=== PATIENT | female | born 1950 | race Caucasian/White ===

== ENCOUNTER 2018-01-25 13:58 | Outpatient (CLI) | payer MEDICARE | END 2018-01-25 13:59 | disposition home or self-care (01) | LOC: BICULT 13:58 | PROVIDERS: ATTEND Family Medicine | DX: E83.52 Hypercalcemia (principal); E04.2 Nontoxic multinodular goiter | CPT/HCPCS: 76536 ==

== ENCOUNTER 2018-08-11 13:46 | Outpatient (CLI) | payer MEDICARE ==
[~2018-08-11 13:46] MED LIST: Iopamidol 370 76% 100 ML VIAL ONE; Iopamidol 370 76% 50 ML VIAL FS ONE
[2018-08-11 14:34] LABS: Estimated GFR-MDRD - POC Greater than 90
--- NOTE | 2018-08-11 17:42 | CT ---
CT NECK WITH AND WITHOUT CONTRAST: PARATHYROID PROTOCOL 08/11/18 HISTORY: 67-year-old female with E21.3 - hyperparathyroidism. TECHNIQUE: IV contrast: 120 mL Isovue 370. Precontrast scan, 25 second delayed postcontrast scan, and 65 second delayed postcontrast scan, perfo rmed from foramen magnum to T6 level. Coronal and sagittal reconstructions. FINDINGS: There is an approximately 0.9 x 0.4 x 1.6 cm enhancing soft tissue density nodule (without intrinsic iodine on the noncontrast scan image 48 of 89, series 2) which enhances to a greater degree than lymp h nodes on the postcontrast images (axial images 48 of 89 series 5; 48 of 178 series 3; 47 of 89 seri es 6; sagittal image 88 of 180 series 602, and coronal images 72, 73, and 74 of 161, series 601), and which abuts the lateral surface of the esophagus, posterior surface of the right lobe of the thyroid gland at its upper/mid pole, posteromedial surface of the right common carotid artery, and anterior surface of the right longus colli muscle, centered at the C6-7 level. There is high grade degenerative disc disease at C3-4, C4-5, C5-6, and to a lesser degree C6-7. The left internal carotid and distal common carotid artery takes a tortuous, retropharyngeal path, an d anteriorly displaces the left posterior pharyngeal wall at the level of the larynx. IMPRESSION: 1. Good candidate for parathyroid adenoma posterior to the right lobe of the thyroid gland and a butting the right side of the esophagus, at the C6-7 level. 2. Cervical spondylosis with multilevel high grade degenerative disc disease. Code T POS: BARBARA
== END 2018-08-11 13:47 | disposition home or self-care (01) ==
LOC: CT 13:46
PROVIDERS: ATTEND Specialist
DX: E21.3 Hyperparathyroidism, unspecified (principal); M47.892 Other spondylosis, cervical region; M50.30 Other cervical disc degeneration, unspecified cervical region
CPT/HCPCS: 70492; 82565

== ENCOUNTER 2018-08-26 09:22 | Day surgery (SDC) | payer MEDICARE ==
[2018-08-25 10:50] VITALS: BMI 35.4
[2018-08-26 12:05] LABS: Hemoglobin 13.3 g/dL (12.0-16.0)
[2018-08-26 12:30] LABS: Anion Gap 11 mmol/L (10-20); BUN (Urea Nitrogen) 12 mg/dL (9.8-20.1); Calc. Creatinine Clearance 117 mL/min (70-130); Carbon Dioxide 23 mmol/L (23-31); Chloride 109 mmol/L (98-107); Estimated GFR-MDRD 83; Glucose 87 mg/dL (80-115); Potassium 4.4 mmol/L (3.5-5.1); Sodium 139 mmol/L (136-145)
[2018-08-26] MEDS ORDERED: Lidocaine 1% w/Epinephrine 1:100K 30 ML VIAL ONE (13:36)
[2018-08-26] MEDS ORDERED: Fentanyl 100 MCG/2 ML VIAL ONE ×2 (13:44→15:45)
[2018-08-26] MEDS ORDERED: Midazolam HCl 2 mg/2 ml Vial ONE (13:44)
[2018-08-26] MEDS ORDERED: HYDROcodone/Acetaminophen 5/325 mg Tablet ONE (16:50)
--- NOTE | 2018-08-26 22:07 | OP ---
DATE OF PROCEDURE: 08/26/2018 PREOPERATIVE DIAGNOSES: Primary hyperparathyroidism, right parathyroid adenoma and hypercalcemia. POSTOPERATIVE DIAGNOSES: Primary hyperparathyroidism, right parathyroid adenoma and hypercalcemia. PROCEDURES PERFORMED: Right parathyroidectomy, right neck exploration using laryngeal nerve monitori ng. PROCEDURE IN DETAIL: After consent was obtained, the patient was identified, brought to the operatin g room and placed on the table in supine position. General endotracheal anesthesia was obtained. Th e patient was positioned for surgery. Laryngeal nerve monitoring endotracheal tube was placed and do cumented to be functioning. The patient was prepped and draped in sterile fashion. The neck was ext ended. An incision made through skin and subcutaneous tissues down through the platysma and subplaty smal flaps were elevated. The retractor was placed and we turned our attention to the right thyroid lobe. It was dissected free from the strap muscle and retracted medially as the strap muscles retrac cole laterally. Parathyroid adenoma was identified and dissected from the surrounding tissues with ca re not to injure the surrounding structures histologic evaluation and documented to be in fact parathyroid tissue. We then proceeded with closure with absorbable suture. Skin was closed with a r unning subcuticular and sterile dressing was applied. The patient was awakened and taken to recovery room where she remained in stable condition prior to discharge home.
== END 2018-08-26 17:55 | disposition home or self-care (01) ==
LOC: SDC 09:22
PROVIDERS: ATTEND Specialist
PROC: 0GBR0ZZ Excision of Parathyroid Gland, Open Approach (ICD-10-PCS; principal; 2018-08-26)
DX: D35.1 Benign neoplasm of parathyroid gland (principal); E21.0 Primary hyperparathyroidism; E07.9 Disorder of thyroid, unspecified; K21.9 Gastro-esophageal reflux disease without esophagitis; J45.909 Unspecified asthma, uncomplicated; I10 Essential (primary) hypertension; E66.9 Obesity, unspecified; Z68.35 Body mass index [BMI] 35.0-35.9, adult; Z87.891 Personal history of nicotine dependence; Z79.899 Other long term (current) drug therapy
CPT/HCPCS: 36415; 80048; 85014; 85018; 88305; 88331; 88334; 93005; 93010; 96374; J2001; J2250; J3010

== ENCOUNTER 2019-07-07 12:23 | Outpatient (CLI) | payer MEDICARE ==
[2019-07-07 13:13] LABS: Bacteria/HPF 4+ HPF (None Seen); Bilirubin Negative (Negative); Blood, Urine Negative (Negative); Clarity Clear (Clear); Glucose, Urine (Dipstick) Normal (Negative); Leukocyte Negative Leu/uL (Negative); Nitrite Negative (Negative); Protein, Urine (Dipstick) Negative (Neg-Trace); RBC/HPF 0-3 HPF (0-3); Squamous Epithelial 0-3 HPF (0-3); Urobilinogen Normal mg/dL (Less than 2); WBC/HPF 0-3 HPF (0-3)
[2019-07-07 13:50] LABS: #Basophils 0.1 thou/uL (0.0-0.2); #Eosinphils 0.2 thou/uL (0.0-0.7); #Lymphocytes 2.4 thou/uL (1.20-3.40); #Monocytes 0.6 thou/uL (0.11-0.59); #Neutrophils 4.2 thou/uL (1.40-6.50); %Basophils 1.3 % (0.0-1.0); %Lymphocytes 31.8 % (21.0-51.0); %Monocytes 8.1 % (0.0-10.0); %Neutrophils 55.8 % (42.0-75.0); Hemoglobin 13.8 g/dL (12.0-16.0); Mean Corpuscular HGB CONC 33.2 g/dL (32.0-36.0); Mean Corpuscular Hemoglobin 30.2 pg (27.0-31.0); Mean Corpuscular Volume 91.1 fL (78.0-98.0); Mean Platelet Volume 7.9 fL (7.4-10.4); Platelet Count 341 thou/uL (130-400); Red Blood Cell (RBC) Count 4.55 mill/uL (4.20-5.40); White Blood Cell (WBC) Count 7.5 thou/uL (4.8-10.8)
[2019-07-07 13:56] LABS: INR-International Normal Ratio 0.9; Prothrombin Time 12.4 SEC (12.0-14.7)
[2019-07-07 14:14] LABS: Anion Gap 14 mmol/L (10-20); BUN (Urea Nitrogen) 14 mg/dL (9.8-20.1); Calc. Creatinine Clearance 0 mL/min (70-130); Calcium 9.4 mg/dL (7.8-10.44); Carbon Dioxide 24 mmol/L (23-31); Chloride 105 mmol/L (98-107); Estimated GFR-MDRD 87; Glucose 114 mg/dL (80-115); Potassium 4.9 mmol/L (3.5-5.1); Sodium 138 mmol/L (136-145)
--- NOTE | 2019-07-08 11:05 | EKG ---
Test Reason : Blood Pressure : / mmHG Vent. Rate : 060 BPM Atrial Rate : 060 BPM P-R Int : 256 ms QRS Dur : 090 ms QT Int : 464 ms P-R-T Axes : 069 069 066 degrees QTc Int : 464 ms Sinus rhythm with 1st degree A-V block Otherwise normal ECG Confirmed by RIC DURAN ([id number]) on 07/08/2019 11:04:49 AM Referred By: CHRISSY Confirmed By:RIC DURAN
== END 2019-07-07 12:24 | disposition home or self-care (01) ==
LOC: LABBT 12:23
PROVIDERS: ATTEND Orthopaedic Surgery
DX: Z01.818 Encounter for other preprocedural examination (principal); M17.0 Bilateral primary osteoarthritis of knee
CPT/HCPCS: 80048; 81001; 85025; 85610; 87081; 93005; 93010

== ENCOUNTER 2020-07-19 12:07 | Outpatient (CLI) | payer MEDICARE ==
--- NOTE | 2020-07-19 12:54 | MMO ---
Bilateral MAMMO Bilat Screen [facility]E. CLINICAL HISTORY: Patient is 69 years old and is seen for screening. The patient has no family history of breast cancer. The patient has no personal history of cancer. VIEWS: The views performed were: bilateral craniocaudal with tomosynthesis and bilateral mediolateral oblique with tomosynthesis. FILMS COMPARED: The present examination has been compared to prior imaging studies performed at [facility] on 11/19/2004, 08/07/2009 and 07/30/2017, and at [facility] on 05/29/1999. This study has been interpreted with the assistance of computer-aided detection. MAMMOGRAM FINDINGS: There are scattered fibroglandular densities. There are vascular calcifications seen in both breasts. There are no suspicious masses, suspicious calcifications, or new areas of architectural distortion. IMPRESSION: A ROUTINE FOLLOW-UP MAMMOGRAM IN 1 YEAR IS RECOMMENDED. THE RESULTS OF THIS EXAM WERE SENT TO THE PATIENT. ACR BI-RADS Category 2 - Benign finding MAMMOGRAPHY NOTE: 1. A negative mammogram report should not delay a biopsy if a dominant of clinically suspicious mass is present. 2. Approximately 10% to 15% of breast cancers are not detected by mammography. 3. Adenosis and dense breasts may obscure an underlying neoplasm. Reported by: HILARIO CRAWFORD MD Electonically Signed: [id number]
== END 2020-07-19 12:08 | disposition home or self-care (01) ==
LOC: BICMAMMO 12:07
PROVIDERS: ATTEND Family Medicine
DX: Z12.31 Encounter for screening mammogram for malignant neoplasm of breast (principal)
CPT/HCPCS: 77063; 77067

== ENCOUNTER 2020-09-03 06:52 | Outpatient (CLI) | payer MEDICARE, OTHER ==
[2020-09-04 12:09] LABS: SARS-CoV-2 MS2 Positive; SARS-CoV-2 N Gene Negative; SARS-CoV-2 S Gene Negative; SARS-CoV-2 by NAA Not Detected (NotDetected); SARS-CoV-2 orf1ab Negative
== END 2020-09-03 06:53 | disposition home or self-care (01) ==
LOC: LABBT 06:52
PROVIDERS: ATTEND Surgery
DX: Z20.828 Contact with and (suspected) exposure to other viral communicable diseases (principal)
CPT/HCPCS: 87635; U0003

== ENCOUNTER → 2020-09-06 | Day surgery (SDC) | payer MEDICARE | LOC: ENDO/OP 07:38 | PROVIDERS: ATTEND Surgery | DX: K21.9 Gastro-esophageal reflux disease without esophagitis (principal); K44.9 Diaphragmatic hernia without obstruction or gangrene; I10 Essential (primary) hypertension; E07.9 Disorder of thyroid, unspecified; J45.909 Unspecified asthma, uncomplicated; E66.9 Obesity, unspecified; Z68.35 Body mass index [BMI] 35.0-35.9, adult; Z79.899 Other long term (current) drug therapy; Z87.891 Personal history of nicotine dependence | CPT/HCPCS: 91010 ==

== ENCOUNTER 2020-09-17 06:32 | Outpatient (CLI) | payer MEDICARE ==
[2020-09-17 10:24] LABS: #Basophils 0.1 10x3/uL (0.0-0.2); #Eosinphils 0.1 10x3/uL (0.0-0.5); #Monocytes 0.5 10x3/uL (0.0-1.1); %Basophils 0.9 % (0.0-2.0); %Lymphocytes 31.3 % (18.0-47.0); %Monocytes 7.8 % (0.0-10.0); %Neutrophils 57.6 % (40.0-75.0); Hemoglobin 12.7 g/dL (12.0-16.0); Mean Corpuscular HGB CONC 31.3 G/DL (32.0-36.0); Mean Corpuscular Hemoglobin 28.1 PG (27.0-33.0); Mean Corpuscular Volume 89.8 fl (80.0-100.0); Mean Platelet Volume 10.3 fl (7.4-10.4); Platelet Count 357 10x3/uL (130-400); RBC Distribution Width 14.2 % (11.5-14.5); Red Blood Cell (RBC) Count 4.52 10x6/uL (3.90-5.20); White Blood Cell (WBC) Count 6.9 10x3/uL (4.5-11.0)
[2020-09-17 10:31] LABS: ALT (SGPT) 13 U/L (8-55); AST (SGOT) 17 U/L (5-34); Albumin 4.1 g/dL (3.4-4.8); Alkaline Phosphatase 72 U/L (40-110); Anion Gap 12 mmol/L (10-20); BUN (Urea Nitrogen) 14 mg/dL (9.8-20.1); Bilirubin, Direct 0.1 mg/dL (0.1-0.3); Bilirubin, Total 0.4 mg/dL (0.2-1.2); Calc. Creatinine Clearance 0 mL/min (70-130); Calcium 8.8 mg/dL (7.8-10.44); Carbon Dioxide 26 mmol/L (23-31); Chloride 106 mmol/L (98-107); Globulin 2.8 g/dL (2.4-3.5); Glucose 79 mg/dL (80-115); Potassium 4.6 mmol/L (3.5-5.1); Protein, Total 6.9 g/dL (6.0-8.3); Sodium 139 mmol/L (136-145)
[2020-09-17 23:14] LABS: SARS-CoV-2 MS2 Positive; SARS-CoV-2 N Gene Negative; SARS-CoV-2 S Gene Negative; SARS-CoV-2 by NAA Not Detected (NotDetected); SARS-CoV-2 orf1ab Negative
--- NOTE | 2020-09-19 07:00 | EKG ---
Test Reason : PREOP Blood Pressure : / mmHG Vent. Rate : 057 BPM Atrial Rate : 057 BPM P-R Int : 262 ms QRS Dur : 088 ms QT Int : 420 ms P-R-T Axes : 082 072 081 degrees QTc Int : 408 ms Sinus bradycardia with 1st degree A-V block Otherwise normal ECG No previous ECGs available Confirmed by NANCY PARKER, SUBHA ([id number]) on 09/19/2020 7:00:33 AM Referred By: Shilpi BLEDSOE Confirmed By:SUBHA CRUZ MD
== END 2020-09-17 06:33 | disposition home or self-care (01) ==
LOC: LABBT 06:32
PROVIDERS: ATTEND Surgery
DX: Z01.818 Encounter for other preprocedural examination (principal); Z20.828 Contact with and (suspected) exposure to other viral communicable diseases; K44.9 Diaphragmatic hernia without obstruction or gangrene; K21.9 Gastro-esophageal reflux disease without esophagitis
CPT/HCPCS: 80053; 80076; 85025; 93005; U0003; 87635; 93010

== ENCOUNTER 2020-09-20 09:57 | Inpatient (IN) | payer MEDICARE ==
[2020-09-19 11:49] VITALS: BMI 34.9
[2020-09-20] MEDS ORDERED: Ketorolac Tromethamine 30 MG/ML VIAL ONE (10:06)
[2020-09-20] MEDS ORDERED: Dexamethasone 20 MG/5 ML VIAL ONE (10:06)
[2020-09-20] MEDS ORDERED: Glycopyrrolate 0.2 MG/ML 5 ML SYRINGE ONE (10:06)
[2020-09-20] MEDS ORDERED: PROPOFOL 200 MG/20 ML VIAL ONE (10:06)
[2020-09-20] MEDS ORDERED: Rocuronium Bromide 10 MG/ML (10ML VIAL) ONE (10:06)
[2020-09-20] MEDS ORDERED: PHENYLEPHRINE-NS 100 MCG/ML 10 ML SYRINGE ONE (10:06)
[2020-09-20] MEDS ORDERED: ePHEDrine 50 MG/ML VIAL ONE (10:06)
[2020-09-20] MEDS ORDERED: Lidocaine 1% PF 5 ML VIAL ONE (10:06)
[2020-09-20] MEDS ORDERED: Ondansetron PF 4 MG/2 ML Vial ONE (10:06)
[2020-09-20] MEDS ORDERED: Fentanyl 250 MCG/5 ML VIAL ONE (12:25)
[2020-09-20] MEDS ORDERED: Lidocaine 1% w/Epinephrine 1:100K 20 ML VIAL ONE (12:35)
[2020-09-20] MEDS ORDERED: Bupivacaine 0.25% HCL 30 ML VIAL ONE (12:35)
[2020-09-20] MEDS ORDERED: diphenhydrAMINE 50 MG/ML VIAL IVP PRN (14:55)
[2020-09-20] MEDS ORDERED: Ondansetron PF 4 MG/2 ML Vial IVP PRN (14:55)
[2020-09-20] MEDS ORDERED: hydrALAZINE 20 MG/ML VIAL SLOW IVP PRN (14:55)
[2020-09-20] MEDS ORDERED: Promethazine HCl 25 MG/ML VIAL IM PRN (14:55)
[2020-09-20] MEDS ORDERED: Dextrose 5% in Water 1,000 ML IV PRN (14:55)
[2020-09-20] MEDS ORDERED: Morphine 4 MG/ML VIAL SLOW IVP PRN (14:55)
[2020-09-20] MEDS ORDERED: Dextrose 50% Abboject 50 ML SYRINGE SLOW IVP PRN (14:55)
[2020-09-20] MEDS ORDERED: Morphine 2 MG/ML VIAL SLOW IVP PRN (14:55)
[2020-09-20] MEDS ORDERED: Fentanyl 100 MCG/2 ML VIAL ONE ×2 (15:07→15:31)
[2020-09-20] MEDS ORDERED: Promethazine HCl 25 MG/ML VIAL IM/IV PRN (15:15)
[2020-09-20] MEDS ORDERED: Ondansetron HCl/PF 4 MG/2 ML Vial IVP PRN (15:15)
[2020-09-20] MEDS ORDERED: Promethazine HCl 25 MG/ML VIAL ONE (15:20)
[2020-09-20] MEDS ORDERED: Non-Formulary Medication 1 EACH PO PRN (16:33)
[2020-09-20] MEDS: D5 1/2 NS w/20 mEq KCL 1,000 ML IV SCH ×2 (17:08→23:44)
[2020-09-20] MEDS: Ketorolac Tromethamine 30 MG/ML VIAL IVP SCH ×2 (17:09→23:45)
--- NOTE | 2020-09-20 17:09 | OP ---
DATE OF PROCEDURE: 09/20/2020 PREOPERATIVE DIAGNOSIS: Hiatal hernia with reflux. PROCEDURES PERFORMED: Laparoscopic hiatal hernia repair with Mimi fundoplication and esophagogastroduodenoscopy. INDICATIONS: The patient is a 69-year-old female, who has been having severe reflux for many years despite proton pump inhibitors, and moderate hiatal hernia. FINDINGS: About a 4 cm hiatal hernia, which reduced easily. The wrap was done over the 40-[place] bougie. DESCRIPTION OF PROCEDURE: After informed consent was obtained, the patient was taken to the operating room, given general endotracheal anesthesia, placed in supine position, abdomen was prepped and draped in usual fashion. Local anesthesia was infiltrated subcutaneously and deep. A 5-mm incision was performed approximately 8 inches below the xiphoid, slightly to left. Veress needle inserted, drop test performed. Pneumoperitoneum was created to a pressure of 15 mmHg. The patient was placed in steep reverse Trendelenburg position. Judie liver retractor inserted. The left lobe of the liver retracted superiorly. A 5-mm port was placed just to the left of the falciform, 8-mm port placed further lateral, and another 5-mm port placed in left lateral. The gastrophrenic ligament was divided utilizing the LigaSure to open up the left side and down upon the right crura. A retroesophageal window was created using blunt dissection and a Howard drain inserted. The crura were further defined circumferentially. Then, a posterior crural plication was performed utilizing 0 Ethibond Sew-Right and Ti-KNOT device over a 40-[place] bougie. The short gastrics were taken down utilizing the LigaSure. The fundus was grasped and brought to the right side of the esophagus and sutured to the left fundus to include the esophagus with interrupted 2-0 silk sutures tied intracorporeally. Hemostasis was assured. The bougie was removed. An intraoperative endoscopy was performed. The video endoscope was inserted under direct vision, advanced into the sleeve. The scope was retroflexed. The wrap was without torsion. No paraesophageal component. The scope was un- retroflexed. Stomach decompressed. Scope removed. Trocars and retractors removed. The skin closed with interrupted 4-0 Rapide. Dermabond applied. The patient tolerated the procedure well, transferred to Recovery in good condition. Sponge and needle count verified correct x2. Job ID: [id number]
[2020-09-20] MEDS: CEFAZOLIN 2 GM in Premix Bag 1 BAG IVPB SCH (17:10)
[2020-09-20] MEDS: Hydrocodone-Acetamin 15 ML UDCUP PO PRN (21:24)
[2020-09-21] MEDS: CEFAZOLIN 2 GM in Premix Bag 1 BAG IVPB SCH (02:51)
[2020-09-21] MEDS: Ketorolac Tromethamine 30 MG/ML VIAL IVP SCH ×2 (05:34→12:34)
[2020-09-21 05:52] LABS: #Lymphocytes 1.4 thou/uL (1.20-3.40); #Monocytes 0.7 thou/uL (0.11-0.59); #Neutrophils 6.8 thou/uL (1.40-6.50); %Basophils 0.4 % (0.0-1.0); %Eosinophils 0.1 % (0.0-10.0); %Lymphocytes 15.3 % (21.0-51.0); %Monocytes 7.6 % (0.0-10.0); %Neutrophils 76.6 % (42.0-75.0); Hemoglobin 11.7 g/dL (12.0-16.0); Mean Corpuscular HGB CONC 31.8 g/dL (32.0-36.0); Mean Corpuscular Hemoglobin 29.2 pg (27.0-31.0); Mean Corpuscular Volume 91.7 fL (78.0-98.0); Mean Platelet Volume 7.6 fL (7.4-10.4); Platelet Count 292 thou/uL (130-400); RBC Distribution Width 12.6 % (11.5-14.5); Red Blood Cell (RBC) Count 3.99 mill/uL (4.20-5.40); White Blood Cell (WBC) Count 8.9 thou/uL (4.8-10.8)
[2020-09-21 06:14] LABS: Anion Gap 11 mmol/L (10-20); BUN (Urea Nitrogen) 10 mg/dL (9.8-20.1); Calc. Creatinine Clearance 112 mL/min (70-130); Calcium 8.2 mg/dL (7.8-10.44); Carbon Dioxide 25 mmol/L (23-31); Chloride 105 mmol/L (98-107); Estimated GFR-MDRD 83; Glucose 117 mg/dL (80-115); Potassium 4.3 mmol/L (3.5-5.1); Sodium 137 mmol/L (136-145)
[2020-09-21] MEDS: D5 1/2 NS w/20 mEq KCL 1,000 ML IV SCH (08:16)
[2020-09-21] MEDS: Hydrocodone-Acetamin 15 ML UDCUP PO PRN (08:19)
[2020-09-21] MEDS ORDERED: Enoxaparin Sodium 40 MG/0.4 ML SYRINGE SC SCH (09:00)
[2020-09-21] MEDS ORDERED: Pantoprazole 40 MG VIAL IVP SCH (09:00)
--- NOTE | 2020-09-21 09:31 | RAD ---
Exam: Gastrografin thickening of all swallow HISTORY: Status post bariatric surgery. Gastric bypass/vertical sleeve Exposure: 0.3 minutes, 8.6 Gy per centimeter square FINDINGS: Patient administered 15 cc of Gastrografin. Gastrografin passes without any difficulty or d elay. No leak or extravasation IMPRESSION: No leak or extravasation.
[2020-09-21 11:56] VITALS: BP 131/94; TEMP 98.2
--- NOTE | 2020-09-24 09:04 | DIS ---
DATE OF ADMISSION: 09/20/2020 DATE OF DISCHARGE: 09/21/2020 DISCHARGE DIAGNOSIS: Hiatal hernia with gastroesophageal reflux. PROCEDURES DURING ADMISSION: Laparoscopic hiatal hernia repair with Mimi fundoplication, intraoperative esophagogastroscopy, postoperative Gastrografin swallow. HOSPITAL COURSE: The patient was admitted, taken to the operating room, where she underwent repair of the hernia and Mimi. Postoperatively, she has done well. She is tolerating liquids well. Her x-ray is fine. She is discharged home on hydrocodone and Zofran. She will follow up with me in 2 weeks. Job ID: [id number]
== END 2020-09-21 13:50 | disposition home or self-care (01) | DRG 328 ==
LOC: SDC 09:57 → SURG A 16:24
PROVIDERS: ADMIT Surgery; ATTEND Surgery
PROC: 0DV44ZZ Restriction of Esophagogastric Junction, Percutaneous Endoscopic Approach (ICD-10-PCS; principal; 2020-09-20)
PROC: 0BQT4ZZ Repair Diaphragm, Percutaneous Endoscopic Approach (ICD-10-PCS; 2020-09-20)
PROC: 0DJ08ZZ Inspection of Upper Intestinal Tract, Via Natural or Artificial Opening Endoscopic (ICD-10-PCS; 2020-09-20)
DX: K21.9 Gastro-esophageal reflux disease without esophagitis (principal); K44.9 Diaphragmatic hernia without obstruction or gangrene; Z20.828 Contact with and (suspected) exposure to other viral communicable diseases; I10 Essential (primary) hypertension; E66.9 Obesity, unspecified; J45.909 Unspecified asthma, uncomplicated; D35.1 Benign neoplasm of parathyroid gland; Z90.49 Acquired absence of other specified parts of digestive tract; Z79.899 Other long term (current) drug therapy; Z90.710 Acquired absence of both cervix and uterus; Z87.891 Personal history of nicotine dependence; Z68.34 Body mass index [BMI] 34.0-34.9, adult
CPT/HCPCS: 36415; 74240; 80048; 80053; 80076; 85025; 87635; C9113; J0690; J1100; J1650; J1885; J2270; J2405; J2550; J2704; J3010; J3480; J3490; S0020; U0003

== ENCOUNTER 2022-08-16 15:43 | Observation (INO) | payer MEDICARE ==
[2022-08-16 16:11] LABS: #Eosinphils 0.1 thou/uL (0.0-0.7); #Lymphocytes 2.2 thou/uL (1.20-3.40); #Monocytes 0.6 thou/uL (0.11-0.59); #Neutrophils 3.4 thou/uL (1.40-6.50); %Basophils 0.5 % (0.0-1.0); %Eosinophils 2.3 % (0.0-10.0); %Lymphocytes 34.9 % (21.0-51.0); %Monocytes 8.8 % (0.0-10.0); %Neutrophils 53.5 % (42.0-75.0); Hemoglobin 13.4 g/dL (12.0-16.0); Mean Corpuscular HGB CONC 32.4 g/dL (32.0-36.0); Mean Corpuscular Hemoglobin 30.9 pg (27.0-31.0); Mean Corpuscular Volume 95.3 fL (78.0-98.0); Mean Platelet Volume 7.9 fL (7.4-10.4); Platelet Count 282 thou/uL (130-400); RBC Distribution Width 12.1 % (11.5-14.5); Red Blood Cell (RBC) Count 4.34 mill/uL (4.20-5.40); White Blood Cell (WBC) Count 6.3 thou/uL (4.8-10.8)
[2022-08-16 16:27] LABS: ALT (SGPT) 16 U/L (8-55); AST (SGOT) 20 U/L (5-34); Albumin 4.1 g/dL (3.4-4.8); Alkaline Phosphatase 66 U/L (40-110); Anion Gap 14 mmol/L (10-20); BUN (Urea Nitrogen) 12 mg/dL (9.8-20.1); Bilirubin, Total 0.4 mg/dL (0.2-1.2); Calc. Creatinine Clearance 0 mL/min (70-130); Carbon Dioxide 22 mmol/L (23-31); Chloride 106 mmol/L (98-107); Estimated GFR 93; Globulin 2.6 g/dL (2.4-3.5); Glucose 94 mg/dL (83-110); Lipase 23 U/L (8-78); Potassium 3.9 mmol/L (3.5-5.1); Protein, Total 6.7 g/dL (5.8-8.1); Sodium 138 mmol/L (136-145)
[2022-08-16] MEDS ORDERED: Guaifenesin DM 100-10/5 ML UDCUP PO PRN (17:08)
[2022-08-16] MEDS ORDERED: HYDROcodone/Acetaminophen 5/325 mg Tablet PO PRN (17:08)
[2022-08-16] MEDS ORDERED: Ondansetron PF 4 MG/2 ML Vial IVP PRN (17:08)
[2022-08-16] MEDS ORDERED: Senokot S 8.6-50 MG TAB PO PRN (17:08)
[2022-08-16] MEDS ORDERED: Nitroglycerin 2% Ointment 1 INCH/1 GM Packet ONE (17:09)
[2022-08-16] MEDS ORDERED: Aspirin Chewable 81 MG TAB ONE (17:09)
[2022-08-16] MEDS ORDERED: Dicyclomine 20 MG TAB PO PRN (18:01)
[2022-08-16] MEDS ORDERED: Nitroglycerin 0.4 MG TAB (25 Tab Bottle) SL PRN (18:02)
[2022-08-16 19:43] LABS: Troponin I Less than 0.010 ng/mL (< 0.028)
[2022-08-16] MEDS ORDERED: Losartan 25 MG TAB PO SCH (21:00)
[2022-08-16] MEDS ORDERED: traZODone HCl 50 MG TAB PO PRN (21:08)
[2022-08-16 21:09] VITALS: BMI 33.1
[2022-08-16] MEDS: Famotidine 20 MG TAB PO SCH (21:14)
[2022-08-16 22:19] LABS: Troponin I Less than 0.010 ng/mL (< 0.028)
[2022-08-16] MEDS: Acetaminophen 325 MG TAB PO PRN (22:21)
[2022-08-17 05:13] LABS: #Basophils 0.1 thou/uL (0.0-0.2); #Eosinphils 0.2 thou/uL (0.0-0.7); #Lymphocytes 1.9 thou/uL (1.20-3.40); #Monocytes 0.5 thou/uL (0.11-0.59); #Neutrophils 3.5 thou/uL (1.40-6.50); %Basophils 0.9 % (0.0-1.0); %Eosinophils 2.9 % (0.0-10.0); %Lymphocytes 31.3 % (21.0-51.0); %Monocytes 8.5 % (0.0-10.0); %Neutrophils 56.5 % (42.0-75.0); Mean Corpuscular HGB CONC 31.8 g/dL (32.0-36.0); Mean Corpuscular Hemoglobin 30.6 pg (27.0-31.0); Mean Corpuscular Volume 96.4 fL (78.0-98.0); Mean Platelet Volume 7.9 fL (7.4-10.4); Platelet Count 239 thou/uL (130-400); RBC Distribution Width 12.2 % (11.5-14.5); Red Blood Cell (RBC) Count 3.92 mill/uL (4.20-5.40); White Blood Cell (WBC) Count 6.2 thou/uL (4.8-10.8)
[2022-08-17 06:11] LABS: Anion Gap 10 mmol/L (10-20); BUN (Urea Nitrogen) 13 mg/dL (9.8-20.1); Calc. Creatinine Clearance 102 mL/min (70-130); Calcium 8.7 mg/dL (7.8-10.44); Carbon Dioxide 27 mmol/L (23-31); Chloride 107 mmol/L (98-107); Cholesterol 130 mg/dl (< 200 Desired); Estimated GFR 90; Glucose 97 mg/dL (83-110); HDL Cholesterol 44 mg/dL (>60 Neg Risk); LDL Cholesterol, Calculated 64 mg/dL; Potassium 3.9 mmol/L (3.5-5.1); Sodium 140 mmol/L (136-145); Triglycerides 112 mg/dL (Less than 150)
[2022-08-17] MEDS: Acetaminophen 325 MG TAB PO PRN (07:30)
[2022-08-17] MEDS: Famotidine 20 MG TAB PO SCH (08:03)
[2022-08-17] MEDS ORDERED: Aspirin Chewable 81 MG TAB PO SCH (09:00)
[2022-08-17] MEDS ORDERED: Regadenoson 0.4 MG/5 ML SYRINGE ONE (09:20)
[2022-08-17 12:07] VITALS: TEMP 98
[2022-08-17 17:09] VITALS: BP 124/55
== END 2022-08-17 18:49 | disposition home or self-care (01) ==
LOC: ERS 15:43 → 2SW 17:08
PROVIDERS: ADMIT Internal Medicine; ATTEND Internal Medicine
DX: R07.89 Other chest pain (principal); I10 Essential (primary) hypertension; K21.9 Gastro-esophageal reflux disease without esophagitis; I70.0 Atherosclerosis of aorta; Z87.891 Personal history of nicotine dependence; Z79.899 Other long term (current) drug therapy; Z20.822 Contact with and (suspected) exposure to COVID-19
CPT/HCPCS: 71045; 76705; 78452; 80048; 80053; 80061; 83690; 84484 ×2; 85025 ×2; 93005; 93017; 94760 ×2; 99285; A9500; G0378 ×3; U0003; U0005; 36415; J2785